=== PATIENT | female | born 1990 | race Caucasian/White ===

== ENCOUNTER 2025-03-23 21:07 | Emergency (ER) | payer OTHER ==
[~2025-03-23] VITALS: Ht 162.6 cm; Wt 72.7 kg
[2025-03-23 23:18] LABS: PLATELET COUNT (AUTO) 374 K/uL (150-450); RED BLOOD CELL COUNT(AUTO) 4.94 MIL/uL (4.00-5.20); RED CELL DISTRIBUTION WIDTH 13.3 % (11.5-14.5); WHITE BLOOD COUNT (AUTO) 10.8 K/uL (4.5-11.0)
[2025-03-23] MEDS: SODIUM CHLORIDE 0.9% 1,000 ML IV ONE (23:23)
[2025-03-23] MEDS: ACETAMINOPHEN 500 MG TABLET PO ONE (23:23)
[2025-03-23 23:24] LABS: CALCIUM, TOTAL 9.1 mg/dL (8.8-10.5); CREATININE 0.76 mg/dL (0.60-1.30); GLOMERULAR FILTR. RATE CALC > 60 mL/min (>60); SODIUM SERUM 136 mmol/L (136-145); UREA NITROGEN, BLOOD 13 mg/dL (7-18)
[2025-03-23 23:25] LABS: ACETONE,BLOOD NEGATIVE (NEGATIVE); GLUCOSE,RANDOM 413 mg/dL (70-110)
[2025-03-23 23:37] LABS: ASPARTATE AMINOTRANSFERASE 12 U/L (15-37); HCG,QUANTITATIVE < 1 mIU/mL (0-6); TOTAL PROTEIN, SERUM 8.0 g/dL (6.4-8.2)
[2025-03-24] MEDS: SODIUM CHLORIDE 0.9% 1,000 ML IV ONE (02:08)
[2025-03-24] MEDS: INSULIN LISPRO 100 UNITS/ML SQ ONE (02:08)
[2025-03-24 02:11] LABS: GLUCOMETER DEV NAME(LOC) ERT.7; GLUCOSE,POINT OF CARE 353 MG/DL (70-110)
[2025-03-24 04:26] LABS: GLUCOMETER DEV NAME(LOC) ER.7; GLUCOSE,POINT OF CARE 244 MG/DL (70-110)
[2025-03-24 06:01] VITALS: BP 124/74; PULSE 77; RESP 18; TEMP 98.1; O2SAT 99
== END 2025-03-24 06:58 ==
LOC: EMS 21:30
DX: E11.65 Type 2 diabetes mellitus with hyperglycemia (principal); I10 Essential (primary) hypertension; N89.8 Other specified noninflammatory disorders of vagina; Z65.3 Problems related to other legal circumstances
CPT/HCPCS: 99283; 96360; 80048; 80076; 82009; 82962 ×2; 83690; 84702; 85025; 36415; 96361; 96372; J7030; 82948; J1815

== ENCOUNTER 2025-04-04 20:09 | Inpatient (IN) | payer OTHER ==
[~2025-04-04] VITALS: Ht 172.7 cm; Wt 72.7 kg
[2025-04-04 22:02] LABS: PLATELET COUNT (AUTO) 306 K/uL (150-450); RED BLOOD CELL COUNT(AUTO) 4.60 MIL/uL (4.00-5.20); RED CELL DISTRIBUTION WIDTH 13.3 % (11.5-14.5); WHITE BLOOD COUNT (AUTO) 9.6 K/uL (4.5-11.0)
[2025-04-04 22:11] LABS: CALCIUM, TOTAL 8.7 mg/dL (8.8-10.5); CREATININE 0.64 mg/dL (0.60-1.30); GLOMERULAR FILTR. RATE CALC > 60 mL/min (>60); SODIUM SERUM 133 mmol/L (136-145); UREA NITROGEN, BLOOD 14 mg/dL (7-18)
[2025-04-04 22:16] LABS: GLUCOSE,RANDOM 422 mg/dL (70-110)
[2025-04-04] MEDS: SODIUM CHLORIDE 0.9% 1,000 ML IV ONE (22:28)
[2025-04-04 23:36] LABS: GLUCOMETER DEV NAME(LOC) ER.7; GLUCOSE,POINT OF CARE 329 MG/DL (70-110)
[2025-04-05] MEDS: INSULIN REGULAR, HUMAN 100 UNITS/ML IVP ONE (00:24)
[2025-04-05] MEDS ORDERED: HYDROCODONE/ACETAMINOPHEN 5-325 MG TABLET PO PRN (02:45)
[2025-04-05] MEDS ORDERED: BISACODYL 10 MG RECTAL RECTAL SUPPOSITORY PR PRN (02:45)
[2025-04-05] MEDS ORDERED: ONDANSETRON HCL 4 MG/2 ML VIAL IVP PRN (02:45)
[2025-04-05] MEDS ORDERED: MAGNESIUM HYDROXIDE SUSPENSION 30 ML UDCUP PO PRN (02:45)
[2025-04-05] MEDS ORDERED: ZOLPIDEM TARTRATE 5 MG TABLET PO PRN (02:45)
[2025-04-05] MEDS ORDERED: DEXTROSE 50%-WATER 25 GM/50 ML SYRINGE IVP PRN (02:45)
[2025-04-05] MEDS ORDERED: MORPHINE SULFATE 4 MG/ML SYRINGE IVP PRN (02:45)
[2025-04-05] MEDS ORDERED: ACETAMINOPHEN 325 MG TABLET PO PRN (02:45)
[2025-04-05] MEDS: SODIUM CHLORIDE 0.9% 1,000 ML IV ONE (03:13)
[2025-04-05 03:31] LABS: GLUCOMETER DEV NAME(LOC) ER.7; GLUCOSE,POINT OF CARE 172 MG/DL (70-110)
[2025-04-05 05:17] VITALS: BP 107/60; PULSE 72; RESP 18; TEMP 97.9; O2SAT 100
[2025-04-05 06:01] LABS: GLUCOMETER DEV NAME(LOC) 6N.1C; GLUCOSE,POINT OF CARE 168 MG/DL (70-110)
[2025-04-05] MEDS: INSULIN LISPRO 100 UNITS/ML SQ PRN (06:03)
[2025-04-05 08:59] VITALS: BP 111/80; PULSE 70; RESP 18; TEMP 97.7; O2SAT 100
[2025-04-05] MEDS: PANTOPRAZOLE SODIUM 40 MG DR TABLET PO SCH (09:00)
[2025-04-05] MEDS: DOCUSATE SODIUM 100 MG CAPSULE PO SCH (09:00)
[2025-04-05] MEDS: HEPARIN SODIUM,PORCINE 5,000 UNITS/ML VIAL SQ SCH (09:54)
[2025-04-05 20:00] VITALS: BP 114/72; PULSE 83; RESP 18; TEMP 98.1; O2SAT 98
[2025-04-06 04:00] VITALS: BP 107/75; PULSE 79; RESP 18; TEMP 97.7; O2SAT 99
[2025-04-06 06:49] VITALS: BP 98/61; PULSE 78; RESP 19; TEMP 99; O2SAT 100
[2025-04-06 09:06] LABS: GLUCOMETER DEV NAME(LOC) 6N.2C; GLUCOSE,POINT OF CARE 261 MG/DL (70-110)
[2025-04-06 11:45] LABS: GLUCOMETER DEV NAME(LOC) 6N.1C; GLUCOSE,POINT OF CARE 285 MG/DL (70-110)
[2025-04-06 11:50] LABS: GLUCOMETER DEV NAME(LOC) 6N.1C; GLUCOSE,POINT OF CARE 228 MG/DL (70-110)
[2025-04-06 11:50] LABS: GLUCOMETER DEV NAME(LOC) 6N.1C; GLUCOSE,POINT OF CARE 277 MG/DL (70-110)
[2025-04-06 12:20] LABS: GLUCOMETER DEV NAME(LOC) 6N.2C; GLUCOSE,POINT OF CARE 272 MG/DL (70-110)
[2025-04-06 17:15] LABS: GLUCOMETER DEV NAME(LOC) 6N.2C; GLUCOSE,POINT OF CARE 264 MG/DL (70-110)
[2025-04-06 19:40] VITALS: BP 107/72; PULSE 89; RESP 18; TEMP 98.2; O2SAT 97
[2025-04-06] MEDS: INSULIN GLARGINE,HUM.REC.ANLOG 100 UNITS/ML SQ SCH (20:32)
[2025-04-06 22:20] LABS: GLUCOMETER DEV NAME(LOC) 6N.1C; GLUCOSE,POINT OF CARE 291 MG/DL (70-110)
[2025-04-07 05:55] LABS: GLUCOMETER DEV NAME(LOC) 6N.1C; GLUCOSE,POINT OF CARE 235 MG/DL (70-110)
[2025-04-07 08:00] VITALS: BP 100/70; PULSE 85; RESP 20; TEMP 97.7; O2SAT 99
[2025-04-07] MEDS ORDERED: INSLAN SQ (10:07)
[2025-04-07] MEDS ORDERED: METF-1185 PO (10:08)
[2025-04-07 12:10] LABS: GLUCOMETER DEV NAME(LOC) 6N.1C; GLUCOSE,POINT OF CARE 316 MG/DL (70-110)
[2025-04-07 21:16] LABS: GLUCOMETER DEV NAME(LOC) 6N.1C; GLUCOSE,POINT OF CARE 269 MG/DL (70-110)
== END 2025-04-07 18:58 | DRG 638 ==
LOC: EMS 20:09 → EDH 04-05 02:40 → 6S 04-05 04:27
PROVIDERS: ADMIT Internal Medicine; ATTEND Internal Medicine
DX: E11.65 Type 2 diabetes mellitus with hyperglycemia (principal); E87.1 Hypo-osmolality and hyponatremia; I10 Essential (primary) hypertension; Z79.4 Long term (current) use of insulin; Z79.84 Long term (current) use of oral hypoglycemic drugs
CPT/HCPCS: 80048; 82009; 82962; 83036; 84703; 85025; 99285; J1644; J1815